=== PATIENT | male | born 1945 | race Caucasian/White ===

== ENCOUNTER 2024-01-03 11:13 | Emergency (ER) | payer OTHER ==
[~2024-01-03] VITALS: Ht 177.8 cm; Wt 99.8 kg
[~2024-01-03 11:13] MED LIST: ASPI81EC; [UNRECOGNIZED DRUG - OTHER]; [UNRECOGNIZED DRUG - REMARK]
[2024-01-03 12:31] LABS: BASOPHILS ABSOLUTE AUTO 0.01 K/mm3 (0.00-0.23); BASOPHILS PERCENT AUTO 0 % (0-2); EOSINOPHILS ABSOLUTE AUTO 0.08 K/mm3 (0.00-0.68); EOSINOPHILS PERCENT AUTO 1 % (0-6); Hematocrit 45.4 % (37.0-53.0); Hemoglobin 16.2 g/dL (13.5-17.5); IMMATURE GRAN ABSOLUTE AUTO 0.05 K/mm3 (0.00-0.10); IMMATURE GRAN PERCENT AUTO 1 % (0-1); LYMPHOCYTES PERCENT AUTO 12 % (21-46); MONOCYTES ABSOLUTE AUTO 0.81 K/mm3 (0.16-1.47); MONOCYTES PERCENT AUTO 10 % (4-13); Mean Corpuscular HGB 32.7 pg (26.0-34.0); Mean Corpuscular HGB Conc 35.7 g/dL (31.5-36.5); Mean Corpuscular Volume 92 fL (80-100); Mean Platelet Volume 10.8 fL (9.1-12.4); NEUTROPHILS ABSOLUTE AUTO 6.58 K/mm3 (1.96-9.15); NEUTROPHILS PERCENT AUTO 77 % (41-73); Platelet Count 214 K/mm3 (150-400); RDW Coefficient Variation 12.9 % (11.7-14.2); Red Blood Cell Count 4.95 M/mm3 (4.30-5.90); White Blood Cell Count 8.53 K/mm3 (4.00-11.30)
[2024-01-03 12:46] LABS: Calcium, Blood 9.7 mg/dL (8.5-10.1); Creatinine, Blood 1.13 mg/dL (0.60-1.20); Magnesium, Blood 1.9 mg/dL (1.6-2.4); Potassium, Blood 3.1 mmol/L (3.5-5.5)
[2024-01-03] MEDS ORDERED: Potassium Chloride 20 MEQ/15 ML UDC PO ONE (13:00)
[2024-01-03] MEDS ORDERED: Potassium Chloride 20 MEQ TabCR PO ONE (13:00)
[2024-01-03] MEDS ORDERED: Mag Sulfate 1 GM/D5% 100ML 100 ML IV ONE (13:00)
== END 2024-01-03 15:22 | disposition home or self-care (01) ==
LOC: ER 11:13
PROVIDERS: Student in an Organized Health Care Education/Training Program
DX: I49.1 Atrial premature depolarization (principal); I49.8 Other specified cardiac arrhythmias; E87.6 Hypokalemia; R00.2 Palpitations; I12.9 Hypertensive chronic kidney disease with stage 1 through stage 4 chronic kidney disease, or unspecified chronic kidney disease; N18.1 Chronic kidney disease, stage 1
CPT/HCPCS: 80048; 83735; 85025; 93005; 93010; 93246; 96365; 99285-25; A9270; J3475

== ENCOUNTER 2024-01-08 14:00 | Inpatient (IN) | payer OTHER ==
[~2024-01-08] VITALS: Ht 177.8 cm; Wt 98.1 kg
[2024-01-08 14:45] LABS: BASOPHILS ABSOLUTE AUTO 0.02 K/mm3 (0.00-0.23); BASOPHILS PERCENT AUTO 0 % (0-2); EOSINOPHILS ABSOLUTE AUTO 0.06 K/mm3 (0.00-0.68); EOSINOPHILS PERCENT AUTO 1 % (0-6); Hematocrit 47.5 % (37.0-53.0); Hemoglobin 16.7 g/dL (13.5-17.5); IMMATURE GRAN ABSOLUTE AUTO 0.04 K/mm3 (0.00-0.10); IMMATURE GRAN PERCENT AUTO 0 % (0-1); LYMPHOCYTES ABSOLUTE AUTO 1.05 K/mm3 (0.84-5.20); LYMPHOCYTES PERCENT AUTO 11 % (21-46); MONOCYTES ABSOLUTE AUTO 0.65 K/mm3 (0.16-1.47); MONOCYTES PERCENT AUTO 7 % (4-13); Mean Corpuscular HGB 32.6 pg (26.0-34.0); Mean Corpuscular HGB Conc 35.2 g/dL (31.5-36.5); Mean Corpuscular Volume 93 fL (80-100); Mean Platelet Volume 9.8 fL (9.1-12.4); NEUTROPHILS ABSOLUTE AUTO 7.44 K/mm3 (1.96-9.15); NEUTROPHILS PERCENT AUTO 81 % (41-73); Platelet Count 205 K/mm3 (150-400); RDW Coefficient Variation 12.9 % (11.7-14.2); RDW Standard Deviation 44.2 fL (35.1-46.3); Red Blood Cell Count 5.13 M/mm3 (4.30-5.90); White Blood Cell Count 9.26 K/mm3 (4.00-11.30)
[2024-01-08 15:09] LABS: Albumin, Blood 3.4 g/dL (3.4-5.0); Bilirubin, Total 1.7 mg/dL (0.1-1.0); Bun/Creatinine Ratio 13.2 (12.0-20.0); Calcium, Blood 9.2 mg/dL (8.5-10.1); Creatinine, Blood 0.91 mg/dL (0.60-1.20); Globulin, Blood 3.4 g/dL (2.2-4.0); Magnesium, Blood 2.1 mg/dL (1.6-2.4); Potassium, Blood 3.6 mmol/L (3.5-5.5); Thyroid Stimulating Hormone 2.4 uIU/mL (0.360-4.800); Total Protein, Blood 6.8 g/dL (6.4-8.2)
[2024-01-08 15:20] LABS: Base Excess Venous 7.4 mmol/L; Bicarbonate Venous 29.1 mmol/L (24.0-30.0); PCO2 Venous 44.6 mmHg (38-42); pH Blood Venous 7.46 (7.34-7.37)
[2024-01-08 15:33] LABS: Source, Urine Foley catheter
[2024-01-08 15:48] LABS: Appearance, Urine Clear (Clear); Bilirubin, Urine Neg (Neg); Blood, Urine 2+ (Neg); Color, Urine Yellow (P-Yellow); Glucose Qualitative, Urine Neg (Neg); Ketones, Urine 2+ (Neg); Leukocyte Esterase, Urine 2+ (Neg); Nitrite, Urine Neg (Neg); Protein, Urine 1+ (Neg); Specific Gravity, Urine 1.015 (1.003-1.022); Urobilinogen, Urine 1+ (Normal)
[2024-01-08 16:19] LABS: Red Blood Cells, Urine 0-2 /hpf (0-2)
[2024-01-08 16:20] LABS: Bacteria Few /hpf; Squamous Epithelial Cells Not Seen /hpf (Few)
[2024-01-08 19:35] LABS: U Amphetamine Screen Not Detected; U Barbituate Screen Not Detected; U Benzodiazapine Screen Not Detected; U Buprenorphine Screen Not Detected; U Cannabinoids Screen Not Detected; U Cocaine Screen Not Detected; U Methadone Screen Not Detected; U Methamphetamine Screen Not Detected; U Opiates Screen Not Detected; U Oxycodone Screen Not Detected; U Phencyclidine Screen Not Detected
[2024-01-09] MEDS ORDERED: CefTRIAXone Sodium 1,000 MG in NS 50 ML IV SCH (09:00)
[2024-01-09] MEDS ORDERED: NS 1,000 ML IV SCH ×2 (13:20→18:10)
[2024-01-09] MEDS ORDERED: Acetaminophen 325 MG TABLET PO PRN (18:10)
[2024-01-09] MEDS ORDERED: Lactobacil 2-S.Thermo-Bifido 1 1 Cap PO SCH (21:00)
[2024-01-09 21:48] VITALS: BP 135/111
--- NOTE | 2024-01-09 23:38 | NUR ---
TRANSFER NOTE THIS RN RECEIVED REPORT FROM NATALIE YATES IN THE ED. PT TRANSFERRED TO [facility] AT 2135. SLID WITH SLIDE SHEET FROM GURNEY TO BED. VSS. PT WITH INCONTINENT BM. CLEANED WITH ATTENDS IN PLACE. PT A&O X2-3. ANSWERING MOST QUESTIONS APPROPRIATELY BUT IS SLOW TO RESPOND. [place]. FORGETFUL AND POOR HISTORIAN. UNSURE WHY HE IS IN THE HOSPITAL. PT NOTED TO HAVE ZIO PATCH ON LEFT CHEST WALL. PT UNSURE OF WHY HE HAS IT, WHAT IT IS, OR WHEN IT WAS PLACED. NO FAMILY AT BEDSIDE TO ASSIST WITH HISTORY. PHOTO'S TAKEN OF ABRASIONS TO BILATERAL ELBOWS, MEPILEX PLACED. PT WITH HICCUPS AT THIS TIME. NOTED HX OF GERD. DENIES ALL OTHER COMPLAINTS. CHRONIC HUERTAS CATHETER PATENT AND DRAINING TO GRAVITY. REPLACED IN ED PRIOR TO TRANSFER. ORDER RECEIVED FROM PROVIDER GUNNAR. BED ALARM ON FOR SAFETY D/T FORGETFULNESS. NS INFUSING PER EMAR. BED IN LOWEST POSITION AND CALL LIGHT WITHIN REACH.
[2024-01-10 03:43] VITALS: BP 154/96
--- NOTE | 2024-01-10 05:17 | NUR ---
SHIFT SUMMARY SEE PREVIOUS NOTE. NO ACUTE CHANGES SINCE ARRIVAL TO UNIT. VSS. ATTENDS IN PLACE. HUERTAS CATHETER PATENT AND DRAINING TO GRAVITY. NO CHANGES TO NEURO. BED ALARM REMAINS IN PLACE D/T FORGETFULNESS, HOWEVER PT HAS BEEN APPROPRIATE AND NOT IMPULSIVE. BED IN LOWEST POSITION AND CALL LIGHT WITHIN REACH. THIS RN WILL REPORT TO ONCOMING DAYSHIFT RN.
[2024-01-10 07:39] VITALS: BP 110/90
[2024-01-10] MEDS ORDERED: Enoxaparin 40 MG/0.4 ML SYR SC SCH (09:00)
[2024-01-10 11:46] LABS: Bicarbonate Venous 27.5 mmol/L (24.0-30.0); PCO2 Venous 40.8 mmHg (38-42); pH Blood Venous 7.45 (7.34-7.37)
[2024-01-10 12:16] LABS: Albumin, Blood 2.8 g/dL (3.4-5.0); Albumin/Globulin Ratio 0.8 (0.8-1.8); Bilirubin, Total 1.2 mg/dL (0.1-1.0); Bun/Creatinine Ratio 21.7 (12.0-20.0); Calcium, Blood 9.2 mg/dL (8.5-10.1); Creatinine, Blood 0.79 mg/dL (0.60-1.20); Globulin, Blood 3.4 g/dL (2.2-4.0); Potassium, Blood 3.3 mmol/L (3.5-5.5); Total Protein, Blood 6.2 g/dL (6.4-8.2)
[2024-01-10] MEDS ORDERED: PredniSONE 10 MG Tab PO SCH (13:00)
[2024-01-10 15:14] VITALS: BP 125/81
--- NOTE | 2024-01-10 16:22 | NUR ---
SHIFT SUMMARY Pt remains A&Ox3, slow to respond at times. Gen weakness noted. Repositioned for comfort. VSS. Denies chest pain. Resp even nonlabored on RA. C/O abd pain with hiccups earlier. PO meds effective for pain. Hiccups subsided. Almaguer intact with gale output. Incontinent of bowel.BM today. Pain and safety maintained. Uses call light appropriately. No needs verbalized or id at this time. Will continue to monitor.
[2024-01-10 19:22] VITALS: BP 140/92
[2024-01-11 03:01] VITALS: BP 144/80
--- NOTE | 2024-01-11 04:43 | NUR ---
SHIFT SUMMARY: DON IS A&OX2. T-MAX 102.7 WHICH RESPONDED WELL TO APAP. HE IS TOLERATING PO INTAKE WELL, TAKES HIS PILLS WHOLE WITH WATER. HUERTAS PATENT, ATTENDS IN PLACE FOR FECAL INCONTINENCE. PT HAD A SCANT AMOUNT OF BLOOD AT TIP OF PENIS AROUND HUERTAS. PT HAS NOT BEEN OOB THIS SHIFT, REPORTED TO BE A 2-PERSON MAX BUT THAT THERAPY WAS NOT ABLE TO GET PT OOB. IV TO L AC PATENT. HE IS LYING IN BED WITH THE CALL LIGHT IN REACH. WILL GIVE REPORT TO DAY SHIFT RN.
[2024-01-11 07:32] VITALS: BP 125/75
[2024-01-11] MEDS ORDERED: Potassium Chloride 20 MEQ TabCR PO ONE (09:00)
[2024-01-11] MEDS ORDERED: Baclofen 10 MG Tab PO SCH (14:00)
[2024-01-11 14:11] LABS: BASOPHILS ABSOLUTE AUTO 0.02 K/mm3 (0.00-0.23); BASOPHILS PERCENT AUTO 0 % (0-2); EOSINOPHILS ABSOLUTE AUTO 0.01 K/mm3 (0.00-0.68); EOSINOPHILS PERCENT AUTO 0 % (0-6); Hematocrit 45.9 % (37.0-53.0); Hemoglobin 16.2 g/dL (13.5-17.5); IMMATURE GRAN ABSOLUTE AUTO 0.05 K/mm3 (0.00-0.10); IMMATURE GRAN PERCENT AUTO 1 % (0-1); LYMPHOCYTES PERCENT AUTO 7 % (21-46); MONOCYTES ABSOLUTE AUTO 0.67 K/mm3 (0.16-1.47); MONOCYTES PERCENT AUTO 7 % (4-13); Mean Corpuscular HGB 33.1 pg (26.0-34.0); Mean Corpuscular HGB Conc 35.3 g/dL (31.5-36.5); Mean Corpuscular Volume 94 fL (80-100); Mean Platelet Volume 10.1 fL (9.1-12.4); NEUTROPHILS ABSOLUTE AUTO 8.83 K/mm3 (1.96-9.15); NEUTROPHILS PERCENT AUTO 86 % (41-73); Platelet Count 188 K/mm3 (150-400); RDW Coefficient Variation 12.8 % (11.7-14.2); White Blood Cell Count 10.28 K/mm3 (4.00-11.30)
[2024-01-11 14:16] LABS: Bun/Creatinine Ratio 22.9 (12.0-20.0); Calcium, Blood 9.6 mg/dL (8.5-10.1); Creatinine, Blood 0.83 mg/dL (0.60-1.20); Potassium, Blood 3.8 mmol/L (3.5-5.5)
[2024-01-11 15:00] VITALS: BP 131/73
--- NOTE | 2024-01-11 17:25 | NUR ---
NO CHANGES, ADMITTED TO HOSPITAL, STARTED BACLOFEN FOR HICCUPS, MEPILEXS ON ELBOWS CHANGED, VSS, SATS RA 95%, WORKED WITH PT/OT, DR NGUYEN RULING OUT AUTOIMMUNE CAUSES, ALERT AND ORIENTED TO ALL, FORGETFUL, CALL LIGHT WITH IN REACH WILL RELAY TO PM RN
[2024-01-11 19:50] VITALS: BP 147/76
[2024-01-11] MEDS ORDERED: Donepezil HCl 5 MG Tab PO SCH (21:00)
[2024-01-12] VITALS (16 sets, daily range): BP systolic 92–135; BP diastolic 48–95
--- NOTE | 2024-01-12 05:29 | NUR ---
SHIFT SUMMARY: DON IS A&OX2. VSS, APAP GIVEN FOR LOW GRADE FEVER. PT HAS COMPLAINED OF HICCUPS INTERMITTENTLY THIS SHIFT. HUERTAS PATENT, DRAINING DARK YELLOW URINE, COLELCTION BAG HANGING ABOVE FLOOR. HE IS ABLE TO SWALLOW PILLS WHOLE WITH WATER AND IS TOLERATING PO INTAKE. PT HAS NOT BEEN OOB, TWO PERSON ASSSIT FOR BED MOBILITY. ATTENDS IN PLACE FOR FECAL INCONTINENCE. HE HAS BEEN TURNED AND REPOSITIONED Q2. PT HAS SLEPT VERY LITTLE THIS SHIFT. HE IS LYING IN BED WITH THE CALL LIGHT IN REACH. WILL GIVE REPORT TO DAY SHIFT RN.
--- NOTE | 2024-01-12 11:43 | NUR ---
DR MOHR ROUNDED EARLY, PATIENTS SISTER PRESENT IN ROOM, PLAN OF CARE REVIEWED WITH PATIENT AND SISTER
[2024-01-12] MEDS ORDERED: Mag Hydrox/AL Hydrox/Simeth 30 ML UDC PO PRN (12:00)
--- NOTE | 2024-01-12 12:09 | NUR ---
EKG/AFIB EKG COMPLETED DUE TO CHEST PAIN. EKG SHOWING AFIB WITH RVR IN THE 132. REPORTED TO DR. MOHR. ORDER FOR TELEMETRY PLACED.
[2024-01-12] MEDS ORDERED: Metoprolol Succinate 25 MG TABCR PO SCH (13:00)
[2024-01-12] MEDS ORDERED: Metoprolol Succinate 25 MG TABCR PO ONE (16:25)
[2024-01-12] MEDS ORDERED: ClonazePAM 0.5 MG Tab PO PRN (16:35)
[2024-01-12] MEDS ORDERED: NS 1,000 ML IV SCH (18:20)
[2024-01-12] MEDS ORDERED: dilTIAZem HCL 125 MG in Dextrose 5% 100 ML IV SCH (18:25)
[2024-01-12 19:04] LABS: Calcium, Blood 9.2 mg/dL (8.5-10.1); Creatinine, Blood 0.88 mg/dL (0.60-1.20); Magnesium, Blood 2.5 mg/dL (1.6-2.4); Potassium, Blood 3.7 mmol/L (3.5-5.5)
[2024-01-12] MEDS ORDERED: Famotidine 20 MG Tab PO SCH (21:00)
[2024-01-13] VITALS (11 sets, daily range): BP systolic 114–148; BP diastolic 76–112
[2024-01-13] MEDS ORDERED: CHLO25B PO (02:42)
[2024-01-13] MEDS ORDERED: THERA-D2000 UNIT PO (02:45)
[2024-01-13] MEDS ORDERED: Robaxin750 MG PO (02:46)
[2024-01-13] MEDS ORDERED: Prinivil10 MG PO (02:46)
[2024-01-13] MEDS ORDERED: Hytrin2 MG PO (02:47)
[2024-01-13] MEDS ORDERED: TRAZ100 PO (02:47)
--- NOTE | 2024-01-13 04:35 | NUR ---
1999 Pt arrived via bed to PCU. Transferred in bed to room 18. Pt alert, difficult to gauge orientation though appears to be oriented to self, date (within 3 days) and [address] while at other times pt forgetful of where we are. Pt alertness waxes and wanes though continues to be arousable with repeated verbal stimulation. Continues the upper body spastic movements that had been noted on shift/unit prior. Pt is unable to report if those are new or have been prior to this admission. Minimal records, will attempt to get med list from [facility]. Had been transferred to PCU for Atrial Fib with RVR. 2019 Cardizem gtt started at 5mg/ml. 2114 Increase Cardizem to 10mg/hr. 499 Med list from [facility] obtained and reconcilled in [employer]. Given Klonopin PO x 1 this shift for upper body spasms with no apparent relief. Cardizem gtt continues at 10mg/hr with HR better controlled with rates averaging 95-115 bpm, BP stable. Almaguer in place for chronic retention, this was prior to admission and has been replaced this admission. Pt continues severe upper body spasms that pt has reported is uncomfortable but does not report pain when assessed. Pt sleeping short times inbetween spastic episodes. Please see full assessment for additional detials. No further complaints or concerns at this time, will continue to monitor.
[2024-01-13] MEDS ORDERED: Metoprolol Succinate 25 MG TABCR PO SCH (09:00)
--- NOTE | 2024-01-13 15:52 | NUR ---
shift summary Pt a&ox2. This morning, pulling at telemetry lines and removing them. Currently follows commands, slow to respond. Spastic movements involunatry bue, but cease when asleep. Sp02> 92% on RA. Telemetry shows afib, hr currently 100's. Cardizem infusing at 5mg/hr. Chronic damon draining yellow urine to gravity. Small BM this shift. Bed bath given. oral care TID. Fed with assistance. Some difficulty swallowing meat noted. Easier time with puree consistancy. Sister in room part of shift. Currently sleeping, call light in reach.
[2024-01-13] MEDS ORDERED: OLANZapine 5 MG Tab PO SCH (21:00)
[2024-01-14] VITALS (8 sets, daily range): BP systolic 129–162; BP diastolic 72–84
--- NOTE | 2024-01-14 05:58 | NUR ---
1915 Assumed care of pt, bedside report completed. Reviewed shift plan of care and though pt reports no questions, ability to retain information is diffcult to discern. Will continue to reinforce as needed. Pt neuro status waxes and wanes this shift, though involuntary spastic movements are markedly decreased from shift supervisor rn prior, allowing pt to rest more comfortably this shift. Did have incontinent episode of diarrhea this shift, will report to day shift. Continued Cardizem gtt at 5mg/hr thoughout the night, HR stable <120 and VSS. Please see full assessment for additional details. No further complaints or concerns at this time, will continue to monitor.
[2024-01-14] MEDS ORDERED: Metoprolol Succinate 50 MG TABCR PO SCH (09:00)
[2024-01-14 09:14] LABS: ANTI-NUCLEAR AB ANA,IGG ELISA None Detected (None Detected)
[2024-01-14] MEDS ORDERED: Ondansetron HCl 2 MG / ML 2ML Vial IV PRN (09:40)
--- NOTE | 2024-01-14 13:55 | NUR ---
ASSUMED CARE OF PT WHILE PRIMARY RN TO LUNCH. PT RESTING IN BED. HR STABLE AT 100-110. CALL LIGHT IN REACH
[2024-01-14] MEDS ORDERED: dilTIAZem HCL 30 MG TAB PO PRN (16:10)
--- NOTE | 2024-01-14 17:14 | NUR ---
SHIFT SUMMARY PT HAS BEEN OBTUNDED MOST OF THE SHIFT. HE IS ORIENTED TO SELF, PERSON, PLACE. HE HAS BEEN HAVING EPISODE W/ COUGHING WITH FOOD AND THIN LIQUIDS SO A ST CONSULT WAS PLACED, AND I DECREASED THE PT'S DIET TO MINCED AND MOIST W/ NO STRAWS UNTIL ST EVALUATED THE PT. ON TELEMETRY THE PT HAS BEEN IN AFIB. HE WAS ON A DILT GTT, BUT I WAS ABLE TO PUT IT ON STANDBY. THE PT HAS BEEN MAINTAINING AFIB 90'S-110'S. DR. MOHR DID ORDER A PRN FOR HR >120; CARDIZEM 30MG Q6. BP STABLE. THE PT HAS A HUERTAS PATENT AND DRAINING TO GRAVITY. HE HAS COMPLAINED OF SOME ABD DISCOMFORT BUT HE PASSED ALOT OF FLATTUS AND STATED RELIEF. HE HAS BEEN HAVING SMALL LOOSE BM'S THIS SHIFT. THE PT REMAINS LIFT TX AND A Q2 TURN. HE WORKED WITH OT BUT WAS DID NOT COOPERATE W/ PT. I CALLED ERIC FROM [facility]ALL[facility]IVE [facility]ARE TO TOUCH BASE ON CODE STATUS AND THEY SAID THEY WILL COME SEE THE PT IN THE MORNING. NO ACUTE EVENTS. SEE NOTES FOR UPDATES.
[2024-01-15] VITALS (22 sets, daily range): BP systolic 113–160; BP diastolic 71–127
[2024-01-15] MEDS ORDERED: Metoprolol Tartrate 1 MG/ML 5 ML VIAL IV ONE (04:10)
[2024-01-15 04:14] LABS: Hematocrit 48.9 % (37.0-53.0); Hemoglobin 16.5 g/dL (13.5-17.5); Mean Corpuscular HGB 32.4 pg (26.0-34.0); Mean Corpuscular HGB Conc 33.7 g/dL (31.5-36.5); Mean Corpuscular Volume 96 fL (80-100); Mean Platelet Volume 11.2 fL (9.1-12.4); Platelet Count 184 K/mm3 (150-400); RDW Coefficient Variation 13.2 % (11.7-14.2); RDW Standard Deviation 47.3 fL (35.1-46.3); White Blood Cell Count 10.29 K/mm3 (4.00-11.30)
[2024-01-15 04:40] LABS: Albumin, Blood 2.5 g/dL (3.4-5.0); Anion Gap 9 mmol/L (3-11); Blood Urea Nitrogen 30 mg/dL (8-24); Bun/Creatinine Ratio 32.6 (12.0-20.0); CO2, Blood 30 mmol/L (21-32); Calcium, Blood 9.8 mg/dL (8.5-10.1); Chloride, Blood 103 mmol/L (98-108); Creatinine, Blood 0.92 mg/dL (0.60-1.20); Glomerular Filtration Rate 86 (60-); Glucose, Blood 136 mg/dL (70-99); Magnesium, Blood 2.2 mg/dL (1.6-2.4); Phosphorus, Blood 2.8 mg/dL (2.5-4.9); Potassium, Blood 4.1 mmol/L (3.5-5.5); Sodium, Blood 138 mmol/L (136-145)
[2024-01-15] MEDS ORDERED: Metoprolol Succinate 25 MG TABCR PO ONE (08:05)
--- NOTE | 2024-01-15 08:56 | NUR ---
AM NOTE... ASSUMED CARE OF PT AT 0700, PT IS IN AFIB IN THE 110'S-140'S WITH CARDIZEM DRIP AT 15MG/HR. PT'S BP STABLE WITH MAPS>65. THIS WAS STOPPED AROUND 0800 D/T NO ORDERS FOR DRIP BEING PRESENT. NEW ORDERS TO INCREASE HIS ORAL MEDICATIONS WERE GIVEN BY PROVIDER. PT IS ON RA WITH O2 SATS>90% L/S CLEAR T/O DIM IN THE BASES. PT WAS ABLE TO STATE HIS NAME/ AND FOLLOW SOME SIMPLE COMMANDS. PT STRUGGLED WITH TAKING HIS AM MEDICATIONS IN APPLE SAUCE, HE ATTEMPTED TO CHEW THEM AND KEPT THEM IN HIS MOUTH FOR SEVERAL MINUTES. ONCE HE SWALLOWED THIS RN DID ORAL CARE TO ENSURE HE WAS NOT POCKETING. PT IS NOW NPO UNTIL SPEECH CAN EVALUATE. BED ALARM IS ON WILL CONTINUE TO MONITOR.
[2024-01-15] MEDS ORDERED: Metoprolol Succinate 50 MG TABCR PO SCH (09:00)
[2024-01-15] MEDS ORDERED: dilTIAZem HCL 120 MG CAP.CD PO SCH (09:00)
[2024-01-15] MEDS ORDERED: dilTIAZem HCL 60 MG TAB PO PRN (11:27)
[2024-01-15] MEDS ORDERED: dilTIAZem HCL 30 MG TAB PO ONE (11:30)
--- NOTE | 2024-01-15 12:43 | NUR ---
ASSUEMD CARE OF PT WHILE PRIMARY RN TO LUNCH, PT SITTING UPRIGHT IN BED. HR IS STABLE AT 115. PO CARDIZEM GIVEN BEFORE PRIMARY RN TO LUNCH. PT VSS. CALL LIGHT IN REACH
[2024-01-15] MEDS ORDERED: dilTIAZem HCL 125 MG in Dextrose 5% 100 ML IV SCH (14:15)
[2024-01-15] MEDS ORDERED: Metoprolol Tartrate 50 MG Tab PO SCH (21:00)
[2024-01-16] VITALS (8 sets, daily range): BP systolic 104–141; BP diastolic 69–97
[2024-01-16] MEDS ORDERED: QUEtiapine Fumarate 50 MG TAB PO ONE (02:30)
--- NOTE | 2024-01-16 02:40 | NUR ---
Pt with increased agitation, pulling off telemetry leads. Discussed with Dr Rincon, one time order for 50mg Seroquel received and medication administered.
--- NOTE | 2024-01-16 06:54 | NUR ---
SHIFT SUMMARY PATIENT ALERT AND ORIENTED X2. MEDICATED PER EMAR FOR PAIN. PATIENT CONTINUES ON CARDIZEM DRIP AT 15, HIS HEART RATE WAS TRENDING UP OVERNIGHT, ADMINISTERED PRN PO CARDIZEM WITH MINIMAL EFFECT, HEART RATE NOW AVERAGING IN THE 130'S. PATIENT WOULD DESAT OCCASIONALLY WHILE SLEEPING, PLACED PATIENT ON 2 LITERS O2 VIA NC. BLOOD PRESSURE STABLE. WILL CONTINUE TO MONITOR. CALL LIGHT WITHIN REACH.
[2024-01-16] MEDS ORDERED: Digoxin 0.25 MG/ML 2ML Amp IV ONE ×2 (08:55→15:00)
[2024-01-16] MEDS ORDERED: Metoprolol Tartrate 50 MG Tab PO SCH ×2 (09:00→21:00)
[2024-01-16] MEDS ORDERED: Digoxin 0.25 MG in Dextrose 5% 100 ML IV ONE (09:00)
--- NOTE | 2024-01-16 10:36 | NUR ---
CODE STATUS CHANGE TO DNR SPEECH EVALUATED PT THIS MORNING WHOM REPORTS PT IS CONFUSED WITH DIFFICULTY FOLLOWING DIRECTIONS. PRIMARY RN REPORTS PT WITH AGITATION, TACHYCARDIA AND REMAINS ON CARDIZEM DRIP. PHONE CONVERSATION WITH PT'S SISTER, PALMER TO REVIEW PT'S CODE STATUS. PALMER REPORTS PT WOULD NOT WANT TO LIVE THIS WAY. SHE REQUESTS WE MAKE PT A DNR. RECEIVED NEW ORDER FOR DNR FROM DR. MOHR, ORDER PLACED ACCORDINGLY. PALMER WILL BE IN THIS AFTERNOON TO SEE DON. PC TO MEET WITH THEM TO REVIEW GOALS OF CARE.
--- NOTE | 2024-01-16 12:14 | NUR ---
CARE NOTE PT APPEARS TO BE SLEEPING COMFORTABLY AT THIS TIME. HIS SISTER PALMER AND PALLI[facility]IVE [facility]ARE RN ARE AT BEDSIDE. PER TELE MONITORING HR IS NOTED TO TREND 80-90'S, BP STABLE. CARDIZEM INFUSION WAS STOPPED AT APPROX. 1100 DUE TO CONSISTENT HR LESS THAN 110.
[2024-01-16] MEDS ORDERED: Scopolamine Hydrobromide Patch TOP PRN (15:30)
[2024-01-16] MEDS ORDERED: Atropine Sulfate 1% Opth Soln 2ML BTL SL PRN (15:30)
[2024-01-16] MEDS ORDERED: Acetaminophen 650 MG Supp PR PRN (15:30)
[2024-01-16] MEDS ORDERED: Morphine Sulfate 20 MG/1ML 1 ML Oral Syringe SL PRN (15:30)
[2024-01-16] MEDS ORDERED: LORazepam 1 MG Tab PO PRN (15:30)
--- NOTE | 2024-01-16 15:40 | NUR ---
COMFORT CARE S/P GOALS OF CARE MEETING PER DR. HERNANDEZ ORDERS, CONTINUE WITH PO MEDICATIONS FOR COMFORT. MET WITH PT'S SISTER, PALMER AT PT'S BEDSIDE. PAMELA WAS SNORING FOR MAJORITY OF PALLIATIVE [facility]ARE VISIT. PAMELA DID ROUSE WHEN ASKED IF HE WANTED TO BE IN THE HOSPITAL. HIS ANSWER WAS "NO". QUESTION, DO YOU WANT TO BE COMFORTABLE. ANSWER WAS "YES". PALMER IS TEARFUL WITH PAMELA'S ANSWERS. SHE REPORTED PREVIOUS CONVERSATIONS WITH PAMELA AND THAT HE WOULD NOT WANT TO CONTINUE WITH TREATMENTS. 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 HIS SIGNIFICANT OTHER OF 18 YEARS PASSED. 1 MTH AGO, PT STARTED HAVING FALLS. LOGGING CREW REPORTED TO SISTER, PAMELA WAS SHOWING SIGNS OF DECLINE. HE STOPPED TAKING HIS MEDICATIONS. 2 WKS AGO, SISTER REPORTS HE FELL AND WASN'T ABLE TO GET UP. HE LAID OUTSIDE APX 12 HRS UNTIL THE LOGGING CREW FOUND HIM ON THE GROUND. PALMER WOULD LIKE TO START PT ON COMFORT CARE WITH HOPES OF D/C TO [facility]. ORDERS RECEIVED FROM DR. MOHR TO START COMFORT CARE. PER DR. HERNANDEZ ORDERS, CONTINUE WITH PO MEDICATIONS FOR COMFORT. NEW POL[facility] FILLED OUT TO REFLECT DNR/CHUCKING AND SAWING MACHINE OPERATOR. POL[employer] PENDING PROVIDER SIGNATURE. PROVIDER WILL SIGN ON NEXT ROUNDS. UPDATE PROVIDED TO PRIMARY RN, REEL AND REWINDER OPERATOR AND CARE MANAGEMENT. PC TO REMAIN AVAILABLE NEEDED.
--- NOTE | 2024-01-16 18:23 | NUR ---
SHIFT SUMMARY PT IS SOMNOLENT DURING SHIFT BUT WAKES EASILY TO VERBAL STIMULI. HE IS ORIENTED TO SELF, SISTER PALMER AND PLACE ONLY. BP STABLY, HR NOW RANGING AFIB 80-90'S PER TELE MONITORING. SPO2 MAINTAINED >95% VIA 3L NC. HE DENIED PAIN DURING SHIFT. OCCASIONAL COUGH NOTED DURING SHIFT. CHRONIC HUERTAS CATHETER IS IN PLACE AND DRAINING PRIYA OUTPUT. HE WAS TRANSITIONED TO COMFORT CARE DURING SHIFT AND HAS APPEARED COMFORTABLE/SLEEPING FOR MAJORITY OF SHIFT. CALL LIGHT IS W/IN REACH. BED ALARM ON.
[2024-01-17 01:35] VITALS: BP 133/98
--- NOTE | 2024-01-17 06:38 | NUR ---
SHIFT SUMMARY PATIENT ALERT AND ORIENTED TO SELF. MEDICATED PER EMAR FOR TACHYCARDIA. REPOSITIONED EVERY TWO HOURS TO HELP WITH COMFORT. WAS ON ROOM AIR OVERNIGHT, WILL OCCASIONALLY DESAT WHILE SLEEPING, BUT RECOVERS. PATIENT DOES NOT APPEAR TO BE IN ANY RESPIRATORY DISTRESS. WILL CONTINUE TO MONITOR. CALL LIGHT WITHIN REACH.
[2024-01-17] MEDS ORDERED: ValACYClovir HCL 500 MG Tab PO SCH (13:00)
[2024-01-17] MEDS ORDERED: TraMADol HCl 50 MG Tab PO PRN (13:20)
[2024-01-17] MEDS ORDERED: Gabapentin 100 MG Cap PO SCH (14:00)
--- NOTE | 2024-01-17 18:02 | NUR ---
SHIFT SUMMARY PT ALERT THIS SHIFT, ABLE TO MAKE SOME NEEDS KNOWN. PT COMFORT CARE. HUERTAS CATHETER DRAINING PRIYA URINE TO GRAVITY. PT C/O OF BACK PAIN. MEDICATED W/ TYLENOL PER EMAR AND HEAT PAD. STILL NOT RESOLVED. CALL PLACED TO MD. W/ ORDERS FOR ULTRAM AND GABAPENTIN. PT W/ SHINGLES LOOKING RASH ON R SIDE ABD. NOTIFIED. W/ ORDERS FOR ACYCLOVIR, SEE EMAR. BED BATH GIVEN. REPOSITIONED Q2H. CALL LIGHT IN REACH. PT SLEEPING IN ROOM.
--- NOTE | 2024-01-18 04:33 | NUR ---
SHIFT SUMMARY. SHIFT HAS BEEN UNREMARKABLE. PT CONFUSED WITH MENTATION SEEMING TO FLUCUATE SOMEWHAT OVER NIGHT. PT ALSO SOMNOLENT BUT HAS REMAINED EASY TO AROUSE TO VERBAL STIMULI THROUGHOUT SHIFT. DESPITE THIS, PT ABLE TO MAKE NEEDS KNOWN AND FOLLOW COMMANDS. COMFORT CARE ASSESSMENTS COMPLETED Q4. INQUIRED ABOUT PAIN SEVERAL TIMES THROUGHOUT SHIFT BUT PT HAS DENIED THROUGHOUT SHIFT AND HAS BEEN ABLE TO SLEEP THROUGH MOST OF SHIFT. DROPLET PRECAUTIONS FOR SHINGLES. Q2 HOUR REPOSITIONS PT ALLOWS. INCONTINENT OF BM. HUERTAS CATHETER REMAINS IN PLACE AND DRAINING TO GRAVITY. BED LOCKED IN LOWEST POSITION. CALL LIGHT LEFT WITHIN REACH. CONTINUING TO MONITOR.
--- NOTE | 2024-01-18 11:28 | NUR ---
Tucker of Care/Transfer to [facility]: Care assumed at 0700hr. Patient sleeping and difficulty to rouse. Able to mumble a few words, but otherwise not able to communicate with patient. No s/s of pain/discomfort at shift change. SENIOR PRODUCER attempted to feed patient breakfast, but unable to swallow food without continuous verbal prompts. Did swallow liquids without difficulty. PO a.m. medications then held due to concern for severe aspiration. Provided full bed bath and linen change, patient then began yelling out and showed signs of severe pain with these cares. PRN Roxinal then given with good effect. TRUDY De Jesus arranged transport/discharge to [facility]. Report called to Zoey YATES at [facility]. [facility] transported patient mook kumar at this time. No belongings located in room.
== END 2024-01-18 11:26 | disposition hospice, home (50) | DRG 546 ==
LOC: ER 14:00 → MEDS 01-09 14:01 → ERHOLD 01-09 14:01 → MEDS 01-09 21:37 → PCU 01-11 14:29 → MEDS 01-11 14:29 → PCU 01-12 20:03
PROVIDERS: Internal Medicine; Nurse Practitioner Acute Care; Student in an Organized Health Care Education/Training Program; ADMIT Internal Medicine
DX: M35.3 Polymyalgia rheumatica (principal); E87.3 Alkalosis; I12.9 Hypertensive chronic kidney disease with stage 1 through stage 4 chronic kidney disease, or unspecified chronic kidney disease; N18.1 Chronic kidney disease, stage 1; Z66 Do not resuscitate; Z51.5 Encounter for palliative care; M10.9 Gout, unspecified; N40.0 Benign prostatic hyperplasia without lower urinary tract symptoms; H90.3 Sensorineural hearing loss, bilateral; R26.9 Unspecified abnormalities of gait and mobility; Z96.0 Presence of urogenital implants; G35 Multiple sclerosis; G25.5 Other chorea; I48.91 Unspecified atrial fibrillation; B02.9 Zoster without complications; Z74.1 Need for assistance with personal care; R62.7 Adult failure to thrive; G31.1 Senile degeneration of brain, not elsewhere classified; Z68.31 Body mass index [BMI] 31.0-31.9, adult
CPT/HCPCS: 36415; 51702; 70551; 71046; 80048; 80053; 80069; 81001; 82306; 82533; 82550; 82803; 82947; 83605; 83735; 84443; 84484; 85025; 85027; 86038; 87086; 92526; 92610; 93005; 93010; 93306; 94760; 94762; 96361; 96361-59; 96365-59; 96366; 96366-59; 96372; 97110; 97129-GO-CO; 97130-GO-CO; 97162; 97165; 97530; 99285-25; A9270; G0378; J0696; J1160; J1650; J2405; J7030; J7512